=== PATIENT | male | born 1950 | race Caucasian/White ===

== ENCOUNTER 2022-12-12 10:47 | Outpatient (REF) | payer MEDICARE, SELFPAY ==
[2022-12-12 17:59] LABS: Urine Cytology See Pathology rpt
== END 2022-12-12 10:48 | disposition home or self-care (01) ==
LOC: HO.LAB 10:47
PROVIDERS: Visit Provider Nurse Practitioner Family
DX: N40.0 Benign prostatic hyperplasia without lower urinary tract symptoms (principal)
CPT/HCPCS: 88112; 99202

== ENCOUNTER → 2023-01-20 13:30 | Outpatient (BNVA) | payer MEDICARE, SELFPAY | PROVIDERS: Visit Provider Urology | DX: N40.0 Benign prostatic hyperplasia without lower urinary tract symptoms (principal); R31.0 Gross hematuria | CPT/HCPCS: 99212 ==